=== PATIENT | female | born 1955 | race Caucasian/White ===

== ENCOUNTER → 2017-11-11 13:49 | Outpatient (CLI) | payer OTHER, SELFPAY ==
--- NOTE | 2017-11-11 | DI.MG.S_ITS ---
BILATERAL DIGITAL SCREENING MAMMOGRAM 3D/2D WITH CAD WITH AUGMENTATION: 11/11/2017 CLINICAL: Routine screening. Comparison is made to exams dated: 08/06/2016 mammogram, 02/16/2015 mammogram, and 01/12/2014 mammogram - [facility]. The tissue of both breasts is heterogeneously dense. This may lower the sensitivity of mammography. Current study was also evaluated with a Computer Aided Detection (CAD) system. Bilateral breast implants are stable. No significant masses, calcifications, or other findings are seen in either breast. There has been no significant interval change. IMPRESSION: NEGATIVE There is no mammographic evidence of malignancy. A 1 year screening mammogram is recommended. This exam was interpreted at Station ID: [id number]. NOTE: For mammograms, a report in lay terms will be sent to the patient. Approximately 15% of breast malignancies will not be visualized mammographically. In the management of a palpable breast mass, a negative mammogram must not discourage biopsy of a clinically suspicious lesion. Electronically Signed By: Mellisa aponte/ric:11/11/2017 15:09:45 letter sent: Normal Exam ACR BI-RADS Category 1: Negative 3341F
== END ==
PROVIDERS: PCP Physician Assistant; Visit Provider Internal Medicine
DX: Z12.31 Encounter for screening mammogram for malignant neoplasm of breast (principal)
CPT/HCPCS: 77063; 77067

== ENCOUNTER → 2018-06-19 12:23 | Outpatient (CLI) | payer MEDICARE, OTHER, SELFPAY ==
[2018-06-19 13:34] LABS: Cholesterol 185 mg/dL (140-199); HDL Cholesterol 83 mg/dL (40-60); LDL Cholesterol Calculated 90 mg/dL (<100); Triglycerides 61 mg/dL (35-150)
[2018-06-19 16:50] LABS: Vitamin D 25 Hydroxy (D3) 55.4 ng/mL (30.0-100.0)
== END ==
PROVIDERS: PCP Student in an Organized Health Care Education/Training Program; Visit Provider Student in an Organized Health Care Education/Training Program
DX: Z13.220 Encounter for screening for lipoid disorders (principal); E55.9 Vitamin D deficiency, unspecified
CPT/HCPCS: 36415; 80061; 82306

== ENCOUNTER → 2019-01-12 16:52 | Outpatient (CLI) | payer MEDICARE, OTHER, SELFPAY ==
--- NOTE | 2019-01-12 | DI.MG.S_ITS ---
BILATERAL DIGITAL SCREENING MAMMOGRAM 3D/2D WITH CAD: 01/12/2019 CLINICAL: Routine screening. Comparison is made to exams dated: 11/11/2017 mammogram, 08/06/2016 mammogram, and 02/16/2015 mammogram - [facility]. The tissue of both breasts is heterogeneously dense. This may lower the sensitivity of mammography. Current study was also evaluated with a Computer Aided Detection (CAD) system. There are benign post operative findings in both breasts. No significant masses, calcifications, or other findings are seen in either breast. There has been no significant interval change. IMPRESSION: There is no mammographic evidence of malignancy. A 1 year screening mammogram is recommended. This exam was interpreted at Station ID: [id number]. NOTE: For mammograms, a report in lay terms will be sent to the patient. Approximately 15% of breast malignancies will not be visualized mammographically. In the management of a palpable breast mass, a negative mammogram must not discourage biopsy of a clinically suspicious lesion. Electronically Signed By: [place] mcrae/ric:01/12/2019 17:31:52 letter sent: Normal Exam ACR BI-RADS Category 2: Benign Finding(s) 3342F
== END ==
PROVIDERS: PCP Student in an Organized Health Care Education/Training Program; Visit Provider Student in an Organized Health Care Education/Training Program
DX: Z12.31 Encounter for screening mammogram for malignant neoplasm of breast (principal)
CPT/HCPCS: 77063; 77067

== ENCOUNTER → 2019-10-19 11:31 | Outpatient (CLI) | payer MEDICARE, OTHER, SELFPAY ==
[2019-10-20 09:42] LABS: COVID19 Sendout Not Detected (Not Detect)
== END ==
PROVIDERS: PCP Student in an Organized Health Care Education/Training Program; Visit Provider Registered Nurse
DX: Z01.812 Encounter for preprocedural laboratory examination (principal)
CPT/HCPCS: 87635

== ENCOUNTER 2019-10-22 06:34 | Day surgery (SDC) | payer MEDICARE, OTHER, SELFPAY ==
[2019-10-22] VITALS (7 sets, daily range): BP systolic 98–137; BP diastolic 46–79; PULSE 77–87; RESP 12–20; TEMP 36.8–37.1; O2SAT 97–99; BMI 21.1
--- NOTE | 2019-10-22 07:19 | PM.HP.1 ---
History of Present Illness History of Present Illness Date Patient Seen: 10/22/19 Time Patient Seen: 07:19 Chief complaint: [id number] Narrative: This is a 64-year-old woman with history of left lower quadrant abdominal pain and recent worsening constipation. She had a colonoscopy in 2007, which was reportedly normal, and she was recommended to have a repeat colonoscopy in 10 years. She denies any melena, hematochezia, or unexplained weight loss. She denies any family history of colon polyps or colon cancers. ROS: Thirteen system review is otherwise negative other than as mentioned below and in HPI. PE: GENERAL: Well groomed and cooperative. Appears stated age. Answers questions promptly and appropriately. Vital signs noted. HENT: Normocephalic, atraumatic. Hearing intact. EYES: Conjunctiva pink, sclera white, no periorbital swelling. CARDIOVASCULAR: Regular rate. No pedal edema. RESPIRATORY: Non-tachypneic, breathing comfortably on room air. GASTROINTESTINAL: Abdomen soft and non-distended GENITALURINARY: No flank tenderness. MUSCULOSKELETAL: Equal tone and mass bilaterally. SKIN: Warm, dry, soft, appropriate color for ethnicity. No other lesions, rashes, or wounds. NEURO: Alert and Oriented X 3. No gross sensory deficits, or cognitive issues. PSYCH: Appropriate affect and mood. Patient History Surgical History History of breast augmentation Status post endoscopy Family & Social History Family History Brother Age: 76 Heart disease Grandfather Heart disease Mother Age: 97 Hypertension Sister Age: 75 Pulmonary fibrosis Tobacco & Substance use: Smoking Status Never smoker Meds Home Medications and Allergies Home Medications Medication Instructions Recorded Confirmed Type CETIRIZINE HCL (ZYRTEC) 10 mg PO QDAY #30 tab 12/14/15 10/22/19 History Tirosint 88 mcg PO DAILY #0 cap 12/14/15 10/22/19 History liothyronine [Cytomel] 50 mcg PO QAM #0 11/21/16 10/22/19 History multivitamin 1 tab PO DAILY 06/19/18 10/22/19 History sodium,potassium,mag sulfates 17.5 177 ml PO DAILY #354 ml 10/20/19 10/22/19 Rx gram-3.13 gram-1.6 gram oral soln Allergies Allergy/AdvReac Type Severity Reaction Status Date / Time No Known Drug Allergies Allergy Verified 10/19/19 11:42 Exam Vital Signs (past 8 hours): - 10/22/19 07:10 Temperature 98.7 F Pulse Rate 87 Respiratory Rate 16 Blood Pressure 137/79 Pulse Oximetry 99 Oxygen Delivery Method Room Air Assessment & Plan Assessment and plan (1) Constipation: Status: Acute (2) Left lower quadrant abdominal pain: Status: Acute (3) At average risk for colon cancer: Status: Acute Assessment & Plan narrative: Risks and benefits of screening colonoscopy and possible polypectomy were discussed with the patient including risk of bleeding, perforation, need for additional procedures, risks of anesthesia. The patient desires to proceed with the colonoscopy procedure. COVID-19 COVID-19 status: Negative Result date/Date tested (Pos, Neg/Pending): 10/19/19 Time Spent With Patient Time with patient: 15-24 minutes
--- NOTE | 2019-10-22 07:22 | PM.OP.ENDO ---
Operative Date/Time/Diagnoses Date of procedure: 10/22/19 Time of procedure: 07:22 Pre-op diagnosis: Change in bowel habits, left lower quadrant abdominal pain Post-op diagnosis: other (tortuous sigmoid colon with suspected pelvic adhesions, aborted procedure) Procedure & Clinicians Indications: This is a 64-year-old woman with left lower quadrant pain and change in bowel habits Surgeon: Adrienne Del Angel Procedure Notes SCOAP/Timeout: Performed Procedure in detail: The patient was brought to the room and placed in left lateral decubitus position with all bony prominences padded. A time-out was performed and then the patient was given procedural sedation starting with 2 mg of Versed and 100 mcg of fentanyl. A total of 6 mg of Versed and 200 micro g of fentanyl were given for the entire procedure. Vitals were monitored throughout the procedure and remained stable. Once adequately sedated, the procedure was begun. A rectal exam was performed revealing palpable nodules consistent with thrombosed internal hemorhoids. The colonoscope was then introduced to the rectum and advanced toward the sigmoid colon. The colon was very tortuous and after 20 minutes of maneuvers to advance to scope, I was unable to make any progress safely. I tried both pediatric and adult scope, repositioning the patient, filling the colon with water, and external pressure by the principal technical specialist. The patient was experiencing significant pain and I was not able to open the lumen. None of our maneuvers made the folds of her colon safely passable. The procedure was aborted. The scope was then withdrawn from the rectum the procedure was concluded. The patient tolerated the procedure well and was transferred to the PACU in stable condition. Sedation minutes: 22 Findings: other findings (tortuous colon) Specimen(s): none sent Impression: Tortuous colon, not safely passable Post-procedure Recommendations: Other recommendation (I will call and schedule the patient for barium enema) Follow up: weeks (barium enema) Disposition: PACU
[2019-10-22] MEDS: MIDAZOLAM 5 MG/5 ML VIAL IV (07:32)
[2019-10-22] MEDS: fentaNYL 250 MCG/5 ML INJ IV (07:33)
== END 2019-10-22 09:14 | disposition home or self-care (01) ==
PROVIDERS: PCP Student in an Organized Health Care Education/Training Program; Referring Provider Surgery; Visit Provider Surgery
PROC: 0DJD8ZZ Inspection of Lower Intestinal Tract, Via Natural or Artificial Opening Endoscopic (ICD-10-PCS; CPT 45378; principal; 2019-10-22 07:45)
DX: R10.32 Left lower quadrant pain (principal); R19.5 Other fecal abnormalities; K59.00 Constipation, unspecified; K64.8 Other hemorrhoids; Z53.09 Procedure and treatment not carried out because of other contraindication
CPT/HCPCS: 45378; 99152; J2250; J3010

== ENCOUNTER → 2019-11-01 09:23 | Outpatient (CLI) | payer MEDICARE, OTHER, SELFPAY ==
--- NOTE | 2019-11-01 09:25 | DI.RAD.S_ITS ---
PROCEDURE: FL BARIUM ENEMA INDICATIONS: aborted colonoscopy, tortuous colon COMPARISON: None. FINDINGS: KUB: Preprocedural environmental science instructor film demonstrates a normal bowel gas pattern. No suspicious abdominal calcifications. Visualized solid organ contours appear normal in size. No suspicious bony lesions. Colon: There is adequate opacification of the entire colon. Study limited by redundancy involving the sigmoid colon, left colon and transverse colon. Numerous diverticuli noted in the sigmoid colon. Scattered diverticuli noted in the transverse and right colon. No strictures or extrinsic mass effects are identified. No mucosal based masses identified. No colonic fistulae or perforations. Colon caliber appears normal. IMPRESSION: 1. No colonic mass or stricture. 2. Colonic diverticulosis. Dictated by: Sue Yanes MD, PhD on 11/01/2019 at 13:04 Approved by: Sue Yanes MD, PhD on 11/01/2019 at 13:07
== END ==
PROVIDERS: PCP Student in an Organized Health Care Education/Training Program; Referring Provider Surgery; Visit Provider Surgery
DX: K59.00 Constipation, unspecified (principal); R10.32 Left lower quadrant pain; K57.30 Diverticulosis of large intestine without perforation or abscess without bleeding
CPT/HCPCS: 74270

== ENCOUNTER 2020-02-25 14:06 | Emergency (ER) | payer MEDICARE, OTHER, SELFPAY ==
[2020-02-25] VITALS (10 sets, daily range): BP systolic 137–171; BP diastolic 73–86; PULSE 95–119; RESP 17–25; TEMP 36.6; O2SAT 98–99
--- NOTE | 2020-02-25 14:26 | PC.NURSE ---
pt here with c/o chest pain since this AM 10/12, chest pain is causing SOB, denies cough, fever, head or throat pain
--- NOTE | 2020-02-25 14:40 | DI.RAD.S_ITS ---
PROCEDURE: XR CHEST 1V INDICATIONS: chest pain near sternum and while breathing TECHNIQUE: One view of the chest was acquired. COMPARISON: None. FINDINGS: Surgical changes and devices: None. Lungs and pleura: Mild diffuse interstitial prominence. No pleural effusions or pneumothorax. Mediastinum: Mediastinal contours appear normal. Mild cardiomegaly. Bones and chest wall: No suspicious bony lesions. Overlying soft tissues appear unremarkable. IMPRESSION: Mild cardiomegaly. Mild diffuse interstitial prominence. Dictated by: Adriano Esquivel M.D. on 02/25/2020 at 14:50 Approved by: Adriano Esquivel M.D. on 02/25/2020 at 14:52
[2020-02-25 14:46] LABS: Add Manual Diff / Slide Review NO; Basophils Absolute Auto 0 /uL (0-100); Basophils Percent Auto 0.3 % (0-2); Eosinophils Absolute Auto 100 /uL (0-450); Eosinophils Percent Auto 0.9 % (2-4); Hematocrit 41.9 % (36-46); Hemoglobin 14.1 g/dL (12.0-16.0); Lymphocytes Absolute Auto 1300 /uL (1100-4500); Lymphocytes Percent Auto 13.4 % (25-40); Mean Corpuscular HGB Conc 33.6 % (30-36); Mean Corpuscular Hemoglobin 30.3 PG (26-34); Mean Corpuscular Volume 90.2 fL (80-100); Monocytes Absolute Auto 1100 /uL (0-900); Monocytes Percent Auto 10.6 % (3-14); Neutrophils Absolute Auto 7500 /uL (1500-7000); Neutrophils Percent Auto 74.8 % (50-75); Platelet Count 211 X10^3/uL (150-400); Red Blood Cell Count 4.65 X10^6/uL (4.0-5.2)
[2020-02-25 14:48] LABS: Prothrombin Time 11.1 SECONDS (10.1-12.7)
[2020-02-25] MEDS: SODIUM CHLORIDE 0.9% 1,000 ML 150 ML IV (14:49)
[2020-02-25 14:51] LABS: Alanine Aminotransferase 18 IU/L (<35); Albumin 4.6 g/dL (3.5-5.0); Albumin Globulin Ratio 1.2 (1.0-2.8); Alkaline Phosphatase 78 U/L (38-126); Aspartate Aminotransferase 36 IU/L (14-36); BUN Creatinine Ratio 39.7 (6-22); Bilirubin Total 1.5 mg/dL (0.2-1.3); Blood Urea Nitrogen 23 mg/dL (7-17); Calcium 9.6 mg/dL (8.4-10.2); Carbon Dioxide 31 mmol/L (22-32); Chloride 103 mmol/L (98-107); Creatine Kinase 54 U/L (30-135); Estimated Glomerular Filt Rate > 60.0 mL/min (>60); Globulin 3.7 g/dL (1.7-4.1); Glucose 98 mg/dL (80-110); Lipase 56 U/L (23-300); Sodium 139 mmol/L (137-145); Total Protein 8.3 g/dL (6.3-8.2)
[2020-02-25 14:52] LABS: HEMOLYSIS 62 (0-50)
[2020-02-25 14:53] LABS: Potassium 4.3 mmol/L (3.4-5.1)
[2020-02-25 14:57] LABS: PTT Partial Thromboplastin Tim 29 SECONDS (26.4-36.2)
[2020-02-25 15:03] LABS: NT-proBNP (BNP-Adult 18+) 146 pg/mL (<125); Troponin I < 0.012 ng/mL (0.01-0.034)
[2020-02-25 16:01] LABS: D Dimer 228 ng/mL (<230)
[2020-02-25] MEDS: KETOROLAC 60 MG/2 ML VIAL 30 MG IV (16:33)
[2020-02-25 17:25] LABS: Creatine Kinase 42 U/L (30-135)
[2020-02-25 17:38] LABS: Troponin I < 0.012 ng/mL (0.01-0.034)
--- NOTE | 2020-02-25 19:31 | ED_ITS ---
HPI - Chest Pain <TUYET Iyer-BC - Last Filed: 02/25/20 20:25> General Chief Complaint: Chest Pain Stated Complaint: Sternum Hurts Difficulty breathing Time Seen by Provider: 02/25/20 14:17 Source: patient Mode of arrival: Ambulatory Limitations: no limitations History of Present Illness HPI narrative: The patient is a 64-year-old female nonsmoker with history of hypothyroid who presents with a chief complaint of chest pain. She woke up with chest pain at 4:00 a.m.. She denies any cough fever, head or throat pain. She states it hurts to take a deep breath. She states it hurts to lean forward at home, but no longer. She states that it hurts when she lays flat. She states she has not taken anything for pain. She denies any recent immobilizations, immobility. She denies any congestion. She denies any fevers muscle aches or chills. She denies any personal cardiac history, though notes that she does have a concerning family history. She states that it hurts to take a deep breath, but no pain when at rest. She wonders if it is related to caring her 9-month-old grandson, who she states is pushing against her chest significantly a few days ago. Related Data Home Medications Medication Instructions Recorded Confirmed CETIRIZINE HCL (ZYRTEC) 10 mg PO QDAY #30 tab 12/14/15 11/11/19 Tirosint 88 mcg PO DAILY #0 cap 12/14/15 11/11/19 liothyronine [Cytomel] 50 mcg PO QAM #0 11/21/16 11/11/19 multivitamin 1 tab PO DAILY 06/19/18 11/11/19 Previous Rx's Medication Instructions Recorded sodium,potassium,mag sulfates 17.5 177 ml PO DAILY #354 ml 10/20/19 gram-3.13 gram-1.6 gram oral soln sodium,potassium,mag sulfates 17.5 177 ml PO DAILY #354 ml 10/27/19 gram-3.13 gram-1.6 gram oral soln ketorolac 10 mg PO TID #14 tab 02/25/20 Allergies Allergy/AdvReac Type Severity Reaction Status Date / Time No Known Drug Allergies Allergy Verified 11/11/19 12:12 Review of Systems <BRENDA Iyer - Last Filed: 02/25/20 20:25> Review of Systems Narrative: GENERAL: Denies chills, fatigue, malaise, fever, sweats. HEENT: Denies sinus pain, ear pain, sore throat, difficulty swallowing, dizzine ss. RESPIRATORY: See HPI CARDIOVASCULAR: Denies chest pain, palpitations, orthopnea, edema, GASTROINTESTINAL: Denies nausea, vomiting, abdominal pain, diarrhea, constipation, melena. : Denies dysuria, frequency, incontinence, hematuria, urinary retention. MUSCULOSKELETAL: denies weakness, joint pain, or bony pain SKIN: Denies rash, skin lesions, or other NEUROLOGIC: Denies weakness, headache, numbness, change in speech, confusion, seizures, incoordination. PSYCHIATRIC: No concerning psychosocial issues. 12 point review of systems is negative except for those stated above Patient History <BRENDA Iyer - Last Filed: 02/25/20 20:25> Medical History (Updated 02/25/20 @ 18:25 by BRENDA Iyer) Difficulty swallowing (Acute) Eczema (Acute) History of migraine headaches (Acute) History of UTI (Acute) Hypothyroidism (Acute) Surgical History H/O laparoscopy (Acute) History of breast augmentation History of colonoscopy (Acute) Status post endoscopy Family History Brother Age: 77 Heart disease Grandfather Heart disease Mother Age: 98 Hypertension Sister Age: 76 Pulmonary fibrosis Social History household members: spouse Smoking Status: Never smoker alcohol intake: current Smoking Status: Never smoker alcohol intake frequency: a few times a week Substance Use Type: does not use Exam <BRENDA Iyer - Last Filed: 02/25/20 20:25> Narrative Exam Narrative: GENERAL: This is a well-nourished, well-developed patient, in no acute distress HEAD: Atraumatic. Normocephalic. No temporal or scalp tenderness. EYES: Pupils equal round and reactive. Extraocular motions intact. No scleral icterus. No injection or drainage. ENT: Nose without bleeding, purulent drainage or septal hematoma. Wearing a mask. Airway patent. NECK: Trachea midline. No JVD or lymphadenopathy. Supple, nontender, no meningeal signs. CARDIOVASCULAR: Regular rate and rhythm RESPIRATORY: Clear to auscultation. Breath sounds equal bilaterally. No wheezes, rales, or rhonchi. No cough. No increased respiratory effort. No accessory muscle use. Speaking full sentences. No pain to chest wall palpation. No pain to anterior to posterior chest wall Malagasy or lateral chest wall compression GASTROINTESTINAL: Abdomen soft, non-tender, nondistended. No hepato- splenomegaly, or palpable masses. No guarding. Active bowel sounds all 4 quadrants. No pain to palpation. EXTREMITIES: No clubbing, cyanosis, or edema. No joint tenderness, effusion, or edema noted. BACK: Nontender without deformity or crepitance. No flank tenderness. NEURO: AOx3. SKIN: No rash or erythema on visible skin. Initial Vital Signs Initial Vital Signs: Vital Signs Temperature 97.9 F 02/25/20 14:11 Pulse Rate 119 H 02/25/20 14:11 Respiratory Rate 02/25/20 14:11 Blood Pressure 171/86 H 02/25/20 14:11 Pulse Oximetry 99 02/25/20 14:11 <Virginia Parra DO - Last Filed: 02/26/20 07:40> Initial Vital Signs Initial Vital Signs: Vital Signs Temperature 97.9 F 02/25/20 14:11 Pulse Rate 119 H 02/25/20 14:11 Respiratory Rate 02/25/20 14:11 Blood Pressure 171/86 H 02/25/20 14:11 Pulse Oximetry 99 02/25/20 14:11 Scores <TUYET Iyer-BC - Last Filed: 02/25/20 20:25> GCS [place] coma scale eye opening: Spontaneous [place] coma scale verbal response: Orientated Cecily coma scale motor response: Obey commands Cecily coma scale total score: 15 HEART Score Heart Score history: Slightly Suspicious Heart Score EKG: Normal Heart Score Age: > or = 65 years old Heart Score risk factors: No known risk factors Heart Score troponin: < or = to normal limit Heart Score Total: 2 PERC Score Age greater than or equal to 50 years: Yes Heart rate greater than or equal to 100 bpm: Yes Room Air O2 Sat less than 95%: No Unilateral leg swelling: No Recent trauma or surgery: No Hemoptysis: No Prior PE or DVT: No Hormone Use: No Total PERC Score: 2 Wells' Criteria for PE Clinical signs and symptoms of DVT: No PE is #1 Dx or equally likely: No Heart rate > 100: Yes Immobilization at least 3 days or surg in previous 4 weeks: No History of PE or DVT: No Hemoptysis: No Malignancy w/Treatment within 6 months or palliative: No Wells' PE Score total: 1.5 Course <MELISSA IyerBC - Last Filed: 02/25/20 20:25> Orders Ordered: Discontinued Medications Sodium Chloride (Normal Saline 0.9%) 1,000 mls @ 150 mls/hr IV CONT CHARO Last Infusion: 02/25/20 18:19 Dose: 0 mls/hr Documented by: Admin: 02/25/20 14:49 Dose: 150 mls/hr Documented by: RUPALI Ketorolac Tromethamine (Toradol) 30 mg IV NOW ONE Stop: 02/25/20 16:12 Last Admin: 02/25/20 16:33 Dose: 30 mg Documented by: RUPALI Vital Signs Vital signs: Vital Signs - 8 hr 02/25/20 14:11 02/25/20 14:55 02/25/20 14:56 Temperature 97.9 F Pulse Rate 119 H 108 H 102 H Respiratory Rate 20 17 19 Blood Pressure 171/86 H 145/78 H Pulse Oximetry 99 98 98 02/25/20 15:00 02/25/20 15:30 02/25/20 16:00 Temperature Pulse Rate 104 H 100 H 108 H Respiratory Rate 22 18 19 Blood Pressure 142/73 H 137/73 148/73 H Pulse Oximetry 99 99 99 02/25/20 16:30 02/25/20 17:00 02/25/20 17:30 Temperature Pulse Rate 107 H 106 H 104 H Respiratory Rate 23 25 H 22 Blood Pressure 147/81 H 154/73 H 142/78 H Pulse Oximetry 98 98 98 02/25/20 18:00 Temperature Pulse Rate 95 H Respiratory Rate 23 Blood Pressure 150/76 H Pulse Oximetry 98 <Virginia Parra DO - Last Filed: 02/26/20 07:40> Orders Ordered: Discontinued Medications Sodium Chloride (Normal Saline 0.9%) 1,000 mls @ 150 mls/hr IV CONT CHARO Last Infusion: 02/25/20 18:19 Dose: 0 mls/hr Documented by: Admin: 02/25/20 14:49 Dose: 150 mls/hr Documented by: RUPALI Ketorolac Tromethamine (Toradol) 30 mg IV NOW ONE Stop: 02/25/20 16:12 Last Admin: 02/25/20 16:33 Dose: 30 mg Documented by: RUPALI Vital Signs Vital signs: Vital Signs - 8 hr 02/25/20 14:11 02/25/20 14:55 02/25/20 14:56 Temperature 97.9 F Pulse Rate 119 H 108 H 102 H Respiratory Rate 20 17 19 Blood Pressure 171/86 H 145/78 H Pulse Oximetry 99 98 98 02/25/20 15:00 02/25/20 15:30 02/25/20 16:00 Temperature Pulse Rate 104 H 100 H 108 H Respiratory Rate 22 18 19 Blood Pressure 142/73 H 137/73 148/73 H Pulse Oximetry 99 99 99 02/25/20 16:30 02/25/20 17:00 02/25/20 17:30 Temperature Pulse Rate 107 H 106 H 104 H Respiratory Rate 23 25 H 22 Blood Pressure 147/81 H 154/73 H 142/78 H Pulse Oximetry 98 98 98 02/25/20 18:00 Temperature Pulse Rate 95 H Respiratory Rate 23 Blood Pressure 150/76 H Pulse Oximetry 98 MDM - Chest Pain <TUYET Iyer- - Last Filed: 02/25/20 20:25> Lab Data Attestation: I reviewed the patient's lab results. Result diagrams: 02/25/20 14:20 02/25/20 14:20 Labs: Lab Results 02/25/20 02/25/20 02/25/20 Range/Units 14:20 14:20 14:20 WBC 10.0 (4.5-11.0) X10^3/uL RBC 4.65 (4.0-5.2) X10^6/uL Hgb 14.1 (12.0-16.0) g/dL Hct 41.9 (36-46) % MCV 90.2 (80-100) fL MCH 30.3 (26-34) PG MCHC 33.6 (30-36) % RDW 14.0 (11.6-14.8) % Plt Count 211 (150-400) X10^3/uL Neut % (Auto) 74.8 (50-75) % Lymph % (Auto) 13.4 L (25-40) % Crockett % (Auto) 10.6 (3-14) % Eos % (Auto) 0.9 L (2-4) % Baso % (Auto) 0.3 (0-2) % Neut # (Auto) 7500 H (5917-9916) /uL Lymph # (Auto) 1300 (4172-2246) /uL Crockett # (Auto) 1100 H (0-900) /uL Eos # (Auto) 100 (0-450) /uL Baso # (Auto) 0 (0-100) /uL PT 11.1 (10.1-12.7) SECONDS INR 1.0 (0.9-1.3) APTT 29 (26.4-36.2) SECONDS D-Dimer (<230) ng/mL Sodium 139 (137-145) mmol/L Potassium 4.3 (3.4-5.1) mmol/L Chloride 103 (98-107) mmol/L Carbon Dioxide 31 (22-32) mmol/L BUN 23 H (7-17) mg/dL Creatinine 0.58 (0.52-1.04) mg/dL Estimated GFR > 60.0 (>60) mL/min BUN/Creatinine Ratio 39.7 H (6-22) Glucose 98 (80-110) mg/dL Calcium 9.6 (8.4-10.2) mg/dL Total Bilirubin 1.5 H (0.2-1.3) mg/dL AST 36 (14-36) IU/L ALT 18 (<35) IU/L Alkaline Phosphatase 78 (38-126) U/L Total Creatine Kinase 54 (30-135) U/L CK-MB (CK-2) TNP CK-MB (CK-2) Rel Index TNP Troponin I < 0.012 (0.01-0.034) ng/mL NT-Pro-B Natriuret Pep 146 H (<125) pg/mL Total Protein 8.3 H (6.3-8.2) g/dL Albumin 4.6 (3.5-5.0) g/dL Globulin 3.7 (1.7-4.1) g/dL Albumin/Globulin Ratio 1.2 (1.0-2.8) Lipase 56 (23-300) U/L 02/25/20 02/25/20 Range/Units 15:45 17:05 WBC (4.5-11.0) X10^3/uL RBC (4.0-5.2) X10^6/uL Hgb (12.0-16.0) g/dL Hct (36-46) % MCV (80-100) fL MCH (26-34) PG MCHC (30-36) % RDW (11.6-14.8) % Plt Count (150-400) X10^3/uL Neut % (Auto) (50-75) % Lymph % (Auto) (25-40) % Crockett % (Auto) (3-14) % Eos % (Auto) (2-4) % Baso % (Auto) (0-2) % Neut # (Auto) (3079-5994) /uL Lymph # (Auto) (6915-4296) /uL Crockett # (Auto) (0-900) /uL Eos # (Auto) (0-450) /uL Baso # (Auto) (0-100) /uL PT (10.1-12.7) SECONDS INR (0.9-1.3) APTT (26.4-36.2) SECONDS D-Dimer 228 (<230) ng/mL Sodium (137-145) mmol/L Potassium (3.4-5.1) mmol/L Chloride (98-107) mmol/L Carbon Dioxide (22-32) mmol/L BUN (7-17) mg/dL Creatinine (0.52-1.04) mg/dL Estimated GFR (>60) mL/min BUN/Creatinine Ratio (6-22) Glucose (80-110) mg/dL Calcium (8.4-10.2) mg/dL Total Bilirubin (0.2-1.3) mg/dL AST (14-36) IU/L ALT (<35) IU/L Alkaline Phosphatase (38-126) U/L Total Creatine Kinase 42 (30-135) U/L CK-MB (CK-2) TNP CK-MB (CK-2) Rel Index TNP Troponin I < 0.012 (0.01-0.034) ng/mL NT-Pro-B Natriuret Pep (<125) pg/mL Total Protein (6.3-8.2) g/dL Albumin (3.5-5.0) g/dL Globulin (1.7-4.1) g/dL Albumin/Globulin Ratio (1.0-2.8) Lipase (23-300) U/L Imaging Data Chest x-ray: Radiologist's Impression: [address] [place] [id number] XRay Report Signed Patient: Janessa Quinn KMR#: [id number] : 1955cct:[id number] Age/Sex: 64 / FDate of Service: 02/25/20 Loc: ED Accession Number: [id number] Procedure: XR chest 1V Ordering Provider: Conchis [address] [employer]- PROCEDURE: XR CHEST 1V INDICATIONS: chest pain near sternum and while breathing TECHNIQUE: One view of the chest was acquired. COMPARISON: None. FINDINGS: Surgical changes and devices: None. Lungs and pleura: Mild diffuse interstitial prominence. No pleural effusions or pneumothorax. Mediastinum: Mediastinal contours appear normal. Mild cardiomegaly. Bones and chest wall: No suspicious bony lesions. Overlying soft tissues appear unremarkable. IMPRESSION: Mild cardiomegaly. Mild diffuse interstitial prominence. Dictated by: Adriano Esquivel M.D. on 02/25/2020 at 14:50 Approved by: Adriano Esquivel M.D. on 02/25/2020 at 14:52 ECG Data Attestation: I personally reviewed and interpreted this ECG as follows: Interpretation: Sinus tachycardia. Ventricular rate 104. P.r. interval 144. QRS 86. viewed by Dr Parra [facility] Narrative Medical decision making narrative: The patient presents with a chief complaint of chest pain, worse with movement. Initial troponin was negative, normal EKG. Repeat troponin several hours later also negative. This helps rule out acute coronary syndrome. Patient felt much improved after Toradol, so prescription provided. The patient presented slightly tachycardic with a heart rate over 100, so PE was considered. However patient does not have risk factors such as immobility or recent hospitalization. Her Wells score was 1.5, perc of to, so D-dimer was obtained in this was negative. Given D-dimer less than 500, no further testing required to rule out PE as per up-to-date recommendations. The patient has appeared well, nontoxic throughout her stay. I did discuss that normal evaluation the emergency department does not rule out further disease and recommended following up with primary care provider. She may benefit from a stress and/or echo, especially given her family history. Discussed at length coming back to the ER for any acute concerns such as concern of chest pain, shortness of breath concern of heart attack or stroke over the weekend. Encouraged follow-up with h her primary care provider in the next few days. Patient expresses appreciation declined coronavirus test in the emergency department. No questions or concerns upon discharge states understanding return precautions as well as follow-up care. <Virginia Parra, DO - Last Filed: 02/26/20 07:40> Lab Data Labs: Lab Results 02/25/20 02/25/20 02/25/20 Range/Units 14:20 14:20 14:20 WBC 10.0 (4.5-11.0) X10^3/uL RBC 4.65 (4.0-5.2) X10^6/uL Hgb 14.1 (12.0-16.0) g/dL Hct 41.9 (36-46) % MCV 90.2 (80-100) fL MCH 30.3 (26-34) PG MCHC 33.6 (30-36) % RDW 14.0 (11.6-14.8) % Plt Count 211 (150-400) X10^3/uL Neut % (Auto) 74.8 (50-75) % Lymph % (Auto) 13.4 L (25-40) % Crockett % (Auto) 10.6 (3-14) % Eos % (Auto) 0.9 L (2-4) % Baso % (Auto) 0.3 (0-2) % Neut # (Auto) 7500 H (8682-8758) /uL Lymph # (Auto) 1300 (0805-0765) /uL Crockett # (Auto) 1100 H (0-900) /uL Eos # (Auto) 100 (0-450) /uL Baso # (Auto) 0 (0-100) /uL PT 11.1 (10.1-12.7) SECONDS INR 1.0 (0.9-1.3) APTT 29 (26.4-36.2) SECONDS D-Dimer (<230) ng/mL Sodium 139 (137-145) mmol/L Potassium 4.3 (3.4-5.1) mmol/L Chloride 103 (98-107) mmol/L Carbon Dioxide 31 (22-32) mmol/L BUN 23 H (7-17) mg/dL Creatinine 0.58 (0.52-1.04) mg/dL Estimated GFR > 60.0 (>60) mL/min BUN/Creatinine Ratio 39.7 H (6-22) Glucose 98 (80-110) mg/dL Calcium 9.6 (8.4-10.2) mg/dL Total Bilirubin 1.5 H (0.2-1.3) mg/dL AST 36 (14-36) IU/L ALT 18 (<35) IU/L Alkaline Phosphatase 78 (38-126) U/L Total Creatine Kinase 54 (30-135) U/L CK-MB (CK-2) TNP CK-MB (CK-2) Rel Index TNP Troponin I < 0.012 (0.01-0.034) ng/mL NT-Pro-B Natriuret Pep 146 H (<125) pg/mL Total Protein 8.3 H (6.3-8.2) g/dL Albumin 4.6 (3.5-5.0) g/dL Globulin 3.7 (1.7-4.1) g/dL Albumin/Globulin Ratio 1.2 (1.0-2.8) Lipase 56 (23-300) U/L 02/25/20 02/25/20 Range/Units 15:45 17:05 WBC (4.5-11.0) X10^3/uL RBC (4.0-5.2) X10^6/uL Hgb (12.0-16.0) g/dL Hct (36-46) % MCV (80-100) fL MCH (26-34) PG MCHC (30-36) % RDW (11.6-14.8) % Plt Count (150-400) X10^3/uL Neut % (Auto) (50-75) % Lymph % (Auto) (25-40) % Crockett % (Auto) (3-14) % Eos % (Auto) (2-4) % Baso % (Auto) (0-2) % Neut # (Auto) (8335-0034) /uL Lymph # (Auto) (7258-4303) /uL Crockett # (Auto) (0-900) /uL Eos # (Auto) (0-450) /uL Baso # (Auto) (0-100) /uL PT (10.1-12.7) SECONDS INR (0.9-1.3) APTT (26.4-36.2) SECONDS D-Dimer 228 (<230) ng/mL Sodium (137-145) mmol/L Potassium (3.4-5.1) mmol/L Chloride (98-107) mmol/L Carbon Dioxide (22-32) mmol/L BUN (7-17) mg/dL Creatinine (0.52-1.04) mg/dL Estimated GFR (>60) mL/min BUN/Creatinine Ratio (6-22) Glucose (80-110) mg/dL Calcium (8.4-10.2) mg/dL Total Bilirubin (0.2-1.3) mg/dL AST (14-36) IU/L ALT (<35) IU/L Alkaline Phosphatase (38-126) U/L Total Creatine Kinase 42 (30-135) U/L CK-MB (CK-2) TNP CK-MB (CK-2) Rel Index TNP Troponin I < 0.012 (0.01-0.034) ng/mL NT-Pro-B Natriuret Pep (<125) pg/mL Total Protein (6.3-8.2) g/dL Albumin (3.5-5.0) g/dL Globulin (1.7-4.1) g/dL Albumin/Globulin Ratio (1.0-2.8) Lipase (23-300) U/L Discharge Plan Departure Patient Disposition: Home Clinical Impression: Atypical chest pain Discharge Date/Time: 02/25/20 18:38 Instructions: DI for Atypical Chest Pain Activity Restrictions/Additional Instructions: Thank you for trusting us with your care today. As discussed, your EKG came back well, your labs came back well. Sent a prescription of ketorolac or Toradol to [facility] in [place]. I have given you a prescription of Toradol. This is an NSAID. Do not combine it with other NSAIDs such as Aleve or ibuprofen. I suggest taking it with some food, as it can irritate your stomach. As discussed, please follow-up with primary care provider in the next few days. Please rest and push fluids. As discussed, please come back to the emergency department for any acute concerns such as chest pain, shortness of breath concern of heart attack or str una. Prescriptions: New ketorolac 10 mg tablet 10 mg PO TID Qty: 14 RF: 0 No Action Tirosint 88 MCG capsule 88 mcg PO DAILY Qty: 0 RF: 0 CETIRIZINE HCL (ZYRTEC) 10 mg PO QDAY Qty: 30 RF: 0 liothyronine [Cytomel] 50 MCG tablet 50 mcg PO QAM Qty: 0 RF: 0 Suprep Bowel Prep Kit 17.5-3.13-1.6 gram recon soln 177 ml PO DAILY Qty: 354 RF: 0 sodium,potassium,mag sulfates 17.5-3.13-1.6 gram recon soln 177 ml PO DAILY Qty: 354 RF: 0 multivitamin [Daily Multi-Vitamin] tablet 1 tab PO DAILY RF: 0 Referrals: Beltran Gutierrez MD [Primary Care Provider] - <Virginia Parra DO - Last Filed: 02/26/20 07:40> Cosign ED Attending Ronenature Attestation: I was immediately available in the department for consultation. Documentation has been reviewed. I agree with assessment and plan.
== END 2020-02-25 18:38 | disposition home or self-care (01) ==
PROVIDERS: Emergency Provider Nurse Practitioner Family; PCP Student in an Organized Health Care Education/Training Program
DX: R07.89 Other chest pain (principal); R00.0 Tachycardia, unspecified
CPT/HCPCS: 36415; 71045; 80053; 82550; 83690; 83880; 84484; 85025; 85379; 85610; 85730; 93005; 93010; 96361; 96374; 99284; J1885

== ENCOUNTER → 2020-08-29 15:12 | Outpatient (CLI) | payer MEDICARE, OTHER, SELFPAY ==
--- NOTE | 2020-08-29 15:16 | DI.MG.S_ITS ---
BILATERAL DIGITAL SCREENING MAMMOGRAM 3D/2D WITH CAD: 08/29/2020 CLINICAL: Routine screening. Comparison is made to exams dated: 01/12/2019 mammogram, 11/11/2017 mammogram, and 08/06/2016 mammogram - [facility]. The tissue of both breasts is heterogeneously dense. This may lower the sensitivity of mammography. Current study was also evaluated with a Computer Aided Detection (CAD) system. There are benign post operative findings in both breasts. No significant masses, calcifications, or other findings are seen in either breast. There has been no significant interval change. IMPRESSION: BENIGN There is no mammographic evidence of malignancy. A 1 year screening mammogram is recommended. This exam was interpreted at Station ID: [id number]. NOTE: For mammograms, a report in lay terms will be sent to the patient. Approximately 15% of breast malignancies will not be visualized mammographically. In the management of a palpable breast mass, a negative mammogram must not discourage biopsy of a clinically suspicious lesion. Electronically Signed By: Ousmane capps/ric:08/29/2020 15:48:23 letter sent: Normal Exam ACR BI-RADS Category 2: Benign Finding(s) 3342F
== END ==
PROVIDERS: PCP Student in an Organized Health Care Education/Training Program; Referring Provider Student in an Organized Health Care Education/Training Program; Visit Provider Student in an Organized Health Care Education/Training Program
DX: Z12.31 Encounter for screening mammogram for malignant neoplasm of breast (principal)
CPT/HCPCS: 77063; 77067

== ENCOUNTER → 2021-08-01 14:38 | Outpatient (CLI) | payer MEDICARE, OTHER, SELFPAY ==
--- NOTE | 2021-08-01 14:39 | DI.ECHO.S_ITS ---
[place] +---------+ [facility] +---------+ : : [address] : : : : [id number] : : : : Phone: [phone] Echocardiogram Report + + :Name: MILTON PAVON Study Date: 08/01/2021 Height: 67 in : :[facility] ReadingLocation: Weight: 136 lb : : Gender: Female BSA: 1.7 m2 : :: 1955 Age: 66 yrs BP: 147/92 mmHg: :Reason For Study: CARDIOMEGALY, STRONG FMH OF HEART DISEASE : :Ordering Physician: MARCY, : :MEHRDAD Performed By: Kacy Barba : :Referring: MEHRDAD VIDAL : + + Interpretation Summary The ejection fraction is estimated to be 60-65%. Diastolic parameters suggest probable normal left ventricular diastolic function and normal filling pressures. The right ventricle is normal in size and function. The left atrium is mildly dilated. There is mild to moderate tricuspid regurgitation. PASP is approximately 33 to 38 mmHg. Procedure: A two-dimensional transthoracic echocardiogram with color flow and Doppler was performed. The study quality was technically adequate. There is no prior echocardiogram noted for this patient. The patient was in sinus rhythm with heart rates between 78-85 bpm during the exam. Left Ventricle: The left ventricle is normal in size and wall thickness. The ejection fraction is estimated to be 60-65%. Diastolic parameters suggest probable normal left ventricular diastolic function and normal filling pressures. Right Ventricle: The right ventricle is normal in size and function. Atria: The left atrium is mildly dilated. Right atrial size is normal. There is no Doppler evidence for an interatrial shunt. Mitral Valve: The mitral valve is normal in structure and function. There is trace mitral regurgitation. Aortic Valve: The aortic valve is trileaflet. The aortic valve opens well. There is no aortic valve stenosis. No aortic regurgitation is present. Tricuspid Valve: The tricuspid valve is normal in structure and function. There is mild to moderate tricuspid regurgitation. PASP is approximately 33 to 38 mmHg. Pulmonic Valve: The pulmonic valve leaflets are thin and pliable; valve motion is normal. There is no pulmonic valvular regurgitation. Great Vessels: The aortic root is normal size. The dimensions of the ascending aorta are normal. The IVC is of normal diameter and collapses greater than 50% with a sniff. This suggests a low right atrial pressure of 3 mm Hg. Pericardium/ Pleura There is a trivial pericardial effusion noted. There is no pleural effusion. MMode/2D Measurements & Calculations LVIDd: 4.7 cm LVOT diam: 2.1 cm LVIDs: 3.1 cm Ao root diam: 3.1 cm FS: 33.8 % asc Aorta Diam: 3.2 cm IVSd: 0.48 cm Ao Arch Diam (Prox Trans): 2.1 cm LVPWd: 0.60 cm LV sams. diameter/BSA (cm/m^2): 2.8 LV sys. diameter/BSA (cm/m^2): 1.8 LA A2 area: 22.3 cm2 RA long axis: 4.8 cm LA A4 area: 17.0 cm2 RA area: 15.2 cm2 LA length (vol): 5.0 cm RA vol: 40.6 ml LA vol: 63.9 ml RA : 23.7 ml/m2 LA vol index: 37.2 ml/m2 IVC diam: 1.4 cm RVD1 (basal): 2.9 cm TAPSE: 1.8 cm Doppler Measurements & Calculations Ao V2 max: 122.1 cm/sec LVOT Max George: 82.1 cm/sec Ao V2 mean: 86.4 cm/sec LV V1 max P.7 mmHg Ao max P.0 mmHg LV V1 VTI: 20.2 cm Ao mean P.3 mmHg KISHOR(I,D): 2.3 cm2 Ao V2 VTI: 30.2 cm KISHOR(V,D): 2.3 cm2 sev ratio: 0.67 KISHOR indexed to BSA (cm^2/m^2): 1.3 MV E max george: 77.7 cm/sec TR max george: 268.4 cm/sec MV A max george: 74.1 cm/sec TR max P.8 mmHg MV E/A: 1.0 PA V2 max: 89.7 cm/sec Med Peak E' George: 9.7 cm/sec PA V2 mean: 60.5 cm/sec E/E' med: 8.0 PA mean P.7 mmHg Lat Peak E' George: 12.4 cm/sec PA pr(Accel): 31.0 mmHg E/E' lat: 6.3 E/e' average: 7.1 MV dec time: 0.19 sec [facility] 68.3 ml Reading Physician:05:33 PM
== END ==
PROVIDERS: PCP Student in an Organized Health Care Education/Training Program; Referring Provider Student in an Organized Health Care Education/Training Program; Visit Provider Student in an Organized Health Care Education/Training Program
DX: M85.89 Other specified disorders of bone density and structure, multiple sites (principal); Z13.820 Encounter for screening for osteoporosis; Z82.49 Family history of ischemic heart disease and other diseases of the circulatory system; I07.1 Rheumatic tricuspid insufficiency; Z78.0 Asymptomatic menopausal state
CPT/HCPCS: 77080; 93306

== ENCOUNTER → 2021-09-06 12:27 | Outpatient (CLI) | payer MEDICARE, OTHER, SELFPAY ==
--- NOTE | 2021-09-06 12:29 | DI.RAD.S_ITS ---
PROCEDURE: XR CHEST 2V INDICATIONS: Rib Pain TECHNIQUE: 2 views of the chest were acquired. COMPARISON: None. FINDINGS: Surgical changes and devices: None. Lungs and pleura: Lungs are clear. No pleural effusions or pneumothorax. Mediastinum: Mediastinal contours are normal. Heart size is normal. Bones and chest wall: Mildly displaced fracture of what is thought to represent the right anterolateral 10th rib. IMPRESSION: Mildly displaced right anterolateral inferior rib fracture, likely rib number ten. Dictated by: Je yVas M.D. on 09/06/2021 at 13:18 Approved by: Je Vyas M.D. on 09/06/2021 at 13:39
== END ==
PROVIDERS: PCP Student in an Organized Health Care Education/Training Program; Referring Provider Student in an Organized Health Care Education/Training Program; Visit Provider Student in an Organized Health Care Education/Training Program
DX: S22.31XA Fracture of one rib, right side, initial encounter for closed fracture (principal); R07.81 Pleurodynia
CPT/HCPCS: 71046

== ENCOUNTER → 2021-09-13 13:56 | Outpatient (CLI) | payer MEDICARE, OTHER, SELFPAY ==
--- NOTE | 2021-09-13 14:00 | DI.MG.S_ITS ---
BILATERAL DIGITAL SCREENING MAMMOGRAM 3D/2D WITH CAD: 09/13/2021 CLINICAL: Routine screening. Comparison is made to exams dated: 08/29/2020 mammogram, 01/12/2019 mammogram, 11/11/2017 mammogram, and 08/06/2016 mammogram - [facility]. The tissue of both breasts is heterogeneously dense. This may lower the sensitivity of mammography. Current study was also evaluated with a Computer Aided Detection (CAD) system. There are benign post operative findings in both breasts. No significant masses, calcifications, or other findings are seen in either breast. There has been no significant interval change. IMPRESSION: BENIGN There is no mammographic evidence of malignancy. A 1 year screening mammogram is recommended. This exam was interpreted at Station ID: [id number]. NOTE: For mammograms, a report in lay terms will be sent to the patient. Approximately 15% of breast malignancies will not be visualized mammographically. In the management of a palpable breast mass, a negative mammogram must not discourage biopsy of a clinically suspicious lesion. Electronically Signed By: Malick Hanks acr/penrad:09/13/2021 14:54:36 letter sent: Normal Exam ACR BI-RADS Category 2: Benign Finding(s) 3342F
== END ==
PROVIDERS: PCP Student in an Organized Health Care Education/Training Program; Referring Provider Student in an Organized Health Care Education/Training Program; Visit Provider Student in an Organized Health Care Education/Training Program
DX: Z12.31 Encounter for screening mammogram for malignant neoplasm of breast (principal)
CPT/HCPCS: 77063; 77067

== ENCOUNTER → 2022-09-16 10:58 | Outpatient (CLI) | payer MEDICARE, OTHER, SELFPAY ==
--- NOTE | 2022-09-16 10:59 | DI.MG.S_ITS ---
BILATERAL DIGITAL SCREENING MAMMOGRAM 3D/2D WITH CAD: 09/16/2022 CLINICAL: Routine screening. Comparison is made to exams dated: 09/13/2021 mammogram, 08/29/2020 mammogram, and 01/12/2019 mammogram - [facility]. Both breasts are heterogeneously dense, which may obscure small masses (category c / 51-75% glandular tissue). Current study was also evaluated with a Computer Aided Detection (CAD) system. There are benign post operative findings in both breasts. No significant masses, calcifications, or other findings are seen in either breast. There has been no significant interval change. IMPRESSION: BENIGN There is no mammographic evidence of malignancy. A 1 year screening mammogram is recommended. Based on the Tyrer Cuzick model (a risk assessment model) the patient's lifetime risk is 7.0% and her 10 year risk is 4.1%. According to the ACR, ACS, and NCCN guidelines, an annual breast MRI exam along with mammogram is recommended if the patient's lifetime risk is 20% or greater. This exam was interpreted at Station ID: [id number]. NOTE: For mammograms, a report in lay terms will be sent to the patient. Approximately 15% of breast malignancies will not be visualized mammographically. In the management of a palpable breast mass, a negative mammogram must not discourage biopsy of a clinically suspicious lesion. Electronically Signed By: Alexandru rosenbaum/ric:09/16/2022 12:44:15 letter sent: Normal Exam ACR BI-RADS Category 2: Benign Finding(s) 3342F
== END ==
PROVIDERS: PCP Student in an Organized Health Care Education/Training Program; Referring Provider Student in an Organized Health Care Education/Training Program; Visit Provider Student in an Organized Health Care Education/Training Program
DX: Z12.31 Encounter for screening mammogram for malignant neoplasm of breast (principal)
CPT/HCPCS: 77063; 77067

== ENCOUNTER → 2023-10-02 13:57 | Outpatient (CLI) | payer MEDICARE, OTHER, SELFPAY ==
--- NOTE | 2023-10-02 13:59 | DI.RAD.S_ITS ---
PROCEDURE: XR DEXA AXIAL SKELETON INDICATIONS: bone density screening [facility]. FINDINGS: Lumbar Spine: Bone mineral density 0.835 g/cm2, T score -1.9. Left Hip: Bone mineral density 0.712 g/cm2, T score -1.9. Left Femoral Neck: Bone mineral density 0.568 g/cm2, T score -2.6. Right Hip: Bone mineral density 0.742 g/cm2, T score -1.6. Right Femoral Neck: Bone mineral density 0.577 g/cm2, T score -2.5. (T score greater or equal to -1.0 to: NORMAL) (T score from -1.1 to -2.4: OSTEOPENIA) (T score less than or equal to -2.5: OSTEOPOROSIS) IMPRESSION: Osteoporosis. Follow-up guidelines as follows: Osteoporosis: Consider a repeat DEXA and Vertebral Fracture Assessment (VFA) exam in 2 years or sooner if medically necessary, to reassess this patient's status. Osteopenia: Consider a repeat DEXA in 2-3 years to reassess this patient's status, or if there is a new clinical indication. Normal: Consider a repeat DEXA in 5 years or sooner, or if there is a new clinical indication. All treatment decisions require clinical judgment and consideration of individual patient factors, including patient preferences, comorbidities, previous drug use, risk factors not captured in the FRAX model (e.g., frailty, falls, vitamin D deficiency, increased bone turnover, interval significant decline in bone density ) and possible under- or over-estimation of fracture risk by FRAX. In addition, the NOF Guide recommends that FDA-approved medical therapies be considered in postmenopausal women and men age >= 50 years with a: * Hip or vertebral (clinical or morphometric) fracture * T-score of <=-2.5 at the spine or hip * Ten-year fracture probability by FRAX of >= 3% for hip fracture or >=20% for major osteoporotic fracture. People with diagnosed cases of osteoporosis or at high risk for fracture should have regular bone mineral density tests. For patients eligible for Medicare, routine testing is allowed once every 2 years. The testing frequency can be increased to one year for patients who have rapidly progressing disease, those who are receiving or discontinuing medical therapy to restore bone mass, or have additional risk factors. Dictated by: Indio Ochoa M.D. on 10/03/2023 at 9:27 Approved by: Indio Ochoa M.D. on 10/03/2023 at 9:31
--- NOTE | 2023-10-02 13:59 | DI.MG.S_ITS ---
BILATERAL DIGITAL SCREENING MAMMOGRAM 3D/2D WITH CAD: 10/02/2023 CLINICAL: Routine screening. Comparison is made to exams dated: 09/16/2022 mammogram, 09/13/2021 mammogram, and 08/29/2020 mammogram - [facility]. Both breasts are heterogeneously dense, which may obscure small masses (category c / 51-75% glandular tissue). Current study was also evaluated with a Computer Aided Detection (CAD) system. There are benign post operative findings in both breasts. No significant masses, calcifications, or other findings are seen in either breast. There has been no significant interval change. IMPRESSION: BENIGN There is no mammographic evidence of malignancy. A 1 year screening mammogram is recommended. Based on the Tyrer Cuzick model (a risk assessment model) the patient's lifetime risk is 6.6% and her 10 year risk is 4.2%. According to the ACR, ACS, and NCCN guidelines, an annual breast MRI exam along with mammogram is recommended if the patient's lifetime risk is 20% or greater. This exam was interpreted at Station ID: [id number]. NOTE: For mammograms, a report in lay terms will be sent to the patient. Approximately 15% of breast malignancies will not be visualized mammographically. In the management of a palpable breast mass, a negative mammogram must not discourage biopsy of a clinically suspicious lesion. Electronically Signed By: Madeleine poole/ric:10/02/2023 17:17:19 letter sent: Normal Exam ACR BI-RADS Category 2: Benign Finding(s) 3342F
== END ==
LOC: MAMMO 13:58
PROVIDERS: PCP Family Medicine; Referring Provider Family Medicine; Visit Provider Family Medicine
DX: Z78.0 Asymptomatic menopausal state (principal); Z12.31 Encounter for screening mammogram for malignant neoplasm of breast; M81.0 Age-related osteoporosis without current pathological fracture; R92.333 Mammographic heterogeneous density, bilateral breasts
CPT/HCPCS: 77063; 77067; 77080

== ENCOUNTER → 2023-11-28 10:40 | Outpatient (CLI) | payer MEDICARE, OTHER, SELFPAY ==
[2023-11-28 11:59] LABS: Hematocrit 40.7 % (36-46); Hemoglobin 13.6 g/dL (12.0-16.0); Mean Corpuscular HGB Conc 33.4 % (30-36); Mean Corpuscular Volume 92.7 fL (80-100); Platelet Count 185 X10^3/uL (150-400); Red Blood Cell Count 4.39 X10^6/uL (4.0-5.2); Red Cell Distribution Width 13.9 % (11.6-14.8)
[2023-11-28 12:23] LABS: BUN Creatinine Ratio 23.9 (6-22); Blood Urea Nitrogen 16 mg/dL (7-17); Calcium 8.7 mg/dL (8.4-10.2); Carbon Dioxide 28 mmol/L (22-32); Chloride 106 mmol/L (98-107); Estimated Glomerular Filt Rate > 60 mL/min (>60); Glucose 88 mg/dL (80-110); HEMOLYSIS < 15 (0-50); Potassium 4.8 mmol/L (3.4-5.1); Sodium 138 mmol/L (137-145)
[2023-11-28 12:37] LABS: Free T3, Triiodothyronine Free 4.47 pg/mL (2.77-5.27); Free T4, Direct Thyroxine 1.03 ng/dL (0.78-2.19)
[2023-11-28 12:51] LABS: Thyroid Stimulating Hormone 1.35 uIU/mL (0.47-4.68)
== END ==
PROVIDERS: PCP Family Medicine; Referring Provider Internal Medicine Endocrinology, Diabetes & Metabolism; Visit Provider Nurse Practitioner Family
DX: E03.9 Hypothyroidism, unspecified (principal); R42 Dizziness and giddiness
CPT/HCPCS: 36415; 80048; 84439; 84443; 84481; 85027

== ENCOUNTER → 2023-12-16 13:55 | Outpatient (CLI) | payer MEDICARE, OTHER, SELFPAY ==
--- NOTE | 2023-12-16 13:59 | DI.RAD.S_ITS ---
PROCEDURE: XR FOOT RT MIN 3V INDICATIONS: BUNIONS BOTH FEET TECHNIQUE: 3 views of the foot were acquired. COMPARISON: None. FINDINGS: Bones: No fractures or dislocations. No suspicious bony lesions. Small bunion. Mild osteoarthritic changes to the midfoot and forefoot. Soft tissues: No tibiotalar joint effusion. Achilles tendon appears normal. IMPRESSION: 1. Small bunion. 2. Mild osteoarthritic changes to the midfoot and forefoot Dictated by: Kain Infante M.D. on 12/16/2023 at 17:05 Approved by: Kain Infante M.D. on 12/16/2023 at 17:07
--- NOTE | 2023-12-16 13:59 | DI.RAD.S_ITS ---
PROCEDURE: XR FOOT LT MIN 3V INDICATIONS: BUNIONS BOTH FEET TECHNIQUE: 3 views of the foot were acquired. COMPARISON: None. FINDINGS: Bones: No fractures or dislocations. No suspicious bony lesions. Small bunion. Mild osteoarthritic changes to the midfoot and forefoot. Soft tissues: No tibiotalar joint effusion. Achilles tendon appears normal. IMPRESSION: 1. Small bunion. 2. Mild osteoarthritic changes to the midfoot and forefoot. Dictated by: Kain Infante M.D. on 12/16/2023 at 17:01 Approved by: Kain Infante M.D. on 12/16/2023 at 17:05
== END ==
PROVIDERS: PCP Family Medicine; Referring Provider Podiatrist Foot & Ankle Surgery; Visit Provider Podiatrist Foot & Ankle Surgery
DX: M21.612 Bunion of left foot (principal); M21.611 Bunion of right foot
CPT/HCPCS: 73630

== ENCOUNTER → 2024-01-01 11:39 | Outpatient (CLI) | payer MEDICARE, OTHER, SELFPAY ==
--- NOTE | 2024-01-01 11:41 | DI.RAD.S_ITS ---
PROCEDURE: XR FOOT RT MIN 3V INDICATIONS: Bunion of right foot TECHNIQUE: 4 views of the foot were acquired. COMPARISON: [facility], , XR FOOT RT MIN 3V, 12/16/2023, 13:57. FINDINGS: Bones: No fractures or dislocations. No suspicious bony lesions. The sesamoid bones appear well position. There is mild stable bunion deformity involving the right great toe. Soft tissues: No tibiotalar joint effusion. Achilles tendon appears normal. IMPRESSION: 1. No evidence for acute osseous abnormality involving the patient's right foot. 2. Stable mild bunion deformity right great toe. Dictated by: Tyree Dickinson M.D. on 01/01/2024 at 13:54 Approved by: Tyree Dickinson M.D. on 01/01/2024 at 13:57
== END ==
PROVIDERS: PCP Family Medicine; Referring Provider Podiatrist Foot & Ankle Surgery; Visit Provider Podiatrist Foot & Ankle Surgery
DX: M21.611 Bunion of right foot (principal)
CPT/HCPCS: 73630

== ENCOUNTER → 2024-03-02 14:20 | Outpatient (CLI) | payer MEDICARE, OTHER, SELFPAY ==
--- NOTE | 2024-03-02 14:22 | DI.RAD.S_ITS ---
PROCEDURE: XR CHEST 2V INDICATIONS: esophageal pain, hx with esophageal dysmotility TECHNIQUE: 2 views of the chest were acquired. COMPARISON: [facility], CR, XR CHEST 2V, 09/06/2021, 12:18. FINDINGS: Surgical changes and devices: None. Lungs and pleura: Lungs are clear. No pleural effusions or pneumothorax. Mediastinum: Mediastinal contours are normal. Heart size is normal. Bones and chest wall: No suspicious bony abnormalities. Soft tissues appear unremarkable. Old healed left clavicle fracture deformity. IMPRESSION: No acute cardiopulmonary abnormality is seen. Approved by: Alexandru Wise M.D. on 03/02/2024 at 15:32
== END ==
PROVIDERS: PCP Family Medicine; Referring Provider Physician Assistant; Visit Provider Physician Assistant
DX: K21.9 Gastro-esophageal reflux disease without esophagitis (principal)
CPT/HCPCS: 71046

== ENCOUNTER → 2024-03-25 10:51 | Outpatient (CLI) | payer MEDICARE, OTHER, SELFPAY ==
--- NOTE | 2024-03-25 10:54 | EKG_ITS ---
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
== END ==
LOC: RESP 10:53
PROVIDERS: PCP Family Medicine; Referring Provider Otolaryngology; Visit Provider Otolaryngology
DX: Z01.810 Encounter for preprocedural cardiovascular examination (principal)
CPT/HCPCS: 93005

== ENCOUNTER → 2024-07-23 13:31 | Outpatient (CLI) | payer MEDICARE, OTHER, SELFPAY ==
--- NOTE | 2024-07-23 13:32 | DI.US.S_ITS ---
PROCEDURE: US PELVIC COMPLETE INDICATIONS: PELVIC DISCOMFORT TECHNIQUE: Real-time scanning was performed of the pelvic organs, with image documentation. Additional endovaginal scanning was necessary due to incomplete visualization of the adnexal and endometrial structures by transabdominal scanning. COMPARISON: [facility], US, PELVIC COMPLETE, 11/21/2016, 9:26. FINDINGS: Uterus: Uterus is anteverted and normal in size at 5.8 x 4.2 x 3.2 cm. The myometrium is heterogeneous. The endometrium measures 6 mm combined thickness. Internal cystic spaces are present. Ovaries: The right ovary measures 1.6 x 1.4 x 0.9 cm, with a calculated ovarian volume of 1.1 cc. The left ovary measures 1.5 x 1.1 x 0.7 cm, with a calculated ovarian volume of 0.6 cc. The ovaries have a normal sonographic appearance. Less than 12 follicles can be seen in each ovary. No adnexal masses are seen. Other: No pathologic free abdominal or pelvic fluid. IMPRESSION: The endometrium is mildly thickened, with internal cystic space. Consider tissue sampling. Heterogeneous myometrium. Adenomyosis not excluded. We strive to produce accurate, complete, and clear reports of imaging services. To assist us in improving patient care, this report was composed using standard report templates and voice recognition software. Therefore, it may contain abnormal punctuation, insertions and/or omissions. Occasional wrong-word or sound-alike substitutions may occur. Though we review the report and make efforts to correct it, we do recommend that the report be read carefully in proper context to recognize any text inaccuracies. Dictated by: Carlos Foster M.D. on 07/23/2024 at 16:41 Approved by: Carlos Foster M.D. on 07/23/2024 at 16:42
== END ==
LOC: US 13:32
PROVIDERS: PCP Family Medicine; Referring Provider Obstetrics & Gynecology; Visit Provider Obstetrics & Gynecology
DX: R93.89 Abnormal findings on diagnostic imaging of other specified body structures (principal); R10.2 Pelvic and perineal pain
CPT/HCPCS: 76830; 76856